=== PATIENT | male | born 1960 | race Two or more races ===

== ENCOUNTER 2019-01-31 21:16 | Emergency (ER) | payer SELFPAY ==
[~2019-01-31] VITALS: Ht 170.2 cm; Wt 76.2 kg
[2019-01-31 21:29] VITALS: BP 132/80
[2019-01-31] MEDS ORDERED: FLUORESCEIN SOD 1 MG TEST STRIP EACHEYE ONE (22:00)
[2019-01-31] MEDS ORDERED: TETRACAINE HCL 0.5% OPTH(EYE) SOLN 4ML EACHEYE ONE (22:00)
== END 2019-01-31 22:30 | disposition home or self-care (01) ==
LOC: ER 21:16
DX: S05.02XA Injury of conjunctiva and corneal abrasion without foreign body, left eye, initial encounter (principal); Z88.1 Allergy status to other antibiotic agents; Z88.8 Allergy status to other drugs, medicaments and biological substances; X58.XXXA Exposure to other specified factors, initial encounter; Y93.89 Activity, other specified; Y92.89 Other specified places as the place of occurrence of the external cause; Y99.8 Other external cause status